=== PATIENT | male | born 1940 | race Caucasian/White ===

== ENCOUNTER 2017-03-22 08:41 | Day surgery (SDC) | payer MEDICARE, MEDICAID ==
[2017-03-22] MEDS ORDERED: Propofol 10 mg/ml Inj (20 ML) ONE (11:37)
[2017-03-22] MEDS ORDERED: Lidocaine 1% Inj (20ml) ONE (11:38)
[2017-03-22] MEDS ORDERED: Etomidate 20 mg/10ml Inj IV ONE (11:40)
[2017-03-22] MEDS: Bupivacaine 0.5% Inj(30mL) ONE ×2 (12:45→13:02)
[2017-03-22] MEDS ORDERED: HYDROmorphone 0.5 mg/0.5 ml ISec IVP PRN (13:21)
[2017-03-22] MEDS ORDERED: Oxycodone/Acetaminophen 5/325 mg Tab PO PRN (13:26)
[2017-03-22] MEDS ORDERED: Sodium Chloride 0.9% 1,000 ML IV SCH (13:30)
--- NOTE | 2017-03-22 13:31 | PCM.SURG1 ---
Surgeon's Initial Post Op Note - Surgeon's Notes Surgeon: Dr. Ramos Machine Operator Hay Stacker: Dr. Mahoney PGY-2, Dr. Goff PGY-2 Type of Anesthesia: General Endo Pre-Operative Diagnosis: direct inguinal hernia Operative Findings: direct inguinal hernia Post-Operative Diagnosis: same Operation Performed: direct inguinal hernia repair with mesh placement Specimen/Specimens Removed: none Estimated Blood Loss: EBL {In ML}: 25 Blood Products Given: N/A Drains Used: No Drains Date of Surgery/Procedure: 03/22/17 Time of Surgery/Procedure: 13:31
[2017-03-22 15:27] VITALS: PULSE 64; RESP 19; TEMP 97.8
[2017-03-22 16:03] VITALS: BP 127/67; O2SAT 97
--- NOTE | 2017-03-22 23:39 | OP ---
PROCEDURE DATE: 03/22/2017 PREOPERATIVE DIAGNOSIS: Right inguinal hernia. POSTOPERATIVE DIAGNOSIS: Right inguinal hernia. OPERATION PERFORMED: Right inguinal herniorrhaphy with plug and patch. SURGEON: Dr. Ramos. ASSISTANTS: Dr. Osmel Goff and Dr. Warren. ESTIMATED BLOOD LOSS: Minimum. DESCRIPTION OF PROCEDURE: In the operating room, the patient was identified by name, name of procedure, laterality, my cameron, the consent, his name, number, and birthday. The area was prepped and draped with perioperative antibiotics. He was on Flomax for nocturia. The area was mapped out and a small incision was made through the skin and subcutaneous tissues that was dissected down through the fascia through the Soy's to identify the fatty layer above the external oblique which was then bluntly to expose the external oblique. Immediately obvious when the retractor was placed was a large hernia going in towards the right along side of the cord. The external oblique was divided under direct vision with fibers and the undersurface of the external oblique was cleaned very nicely. The hernia sac was circumscribed at the pubic tubercle, the pen was placed around identifying that we had included the vas. The hernia sac was then quickly from the cord and the cord with the [place] tied laterally. The hernia sac was then dissected towards opening, it was clearly a direct hernia. A lavonne was made in the hernia sac and this clearly entered the peritoneum and this was closed with Vicryl. Going at the origin of the direct sac, a circumferential incision was made through the fascia. The fascia was then circumferentially identified and from the preperitoneal or properitoneal fat. This was done widely, probably 2 cm in all directions. This allowed the high dissection of the sac to be prolapsed through it, so doing left nice space with a large plug which was sutured circumferentially, this was done to the inner pedals of the plug. The fascia was then closed with a Prolene to give a final beautiful closure. The patch was then placed on top making a hays hole bigger where the cord itself was somewhat large. It was sutured in place and tamped to neutral position. Several tacking stitches were placed without incident. This having been done, the external oblique was placed in its normal position, closed with Vicryl. The testicle was put in its normal position, the wound was injected with Marcaine. The Soy's closed with Vicryl as was the subcutaneous tissue and incision was closed with running PDS and Dermabond. The patient was taken to recovery in good condition after the sponge and needle counts were declared correct. Titi Ramos MD
== END 2017-03-22 20:10 | disposition home or self-care (01) ==
LOC: SDS 08:41
PROVIDERS: ATTEND Surgery
DX: K40.90 Unilateral inguinal hernia, without obstruction or gangrene, not specified as recurrent (principal); I25.10 Atherosclerotic heart disease of native coronary artery without angina pectoris; E78.5 Hyperlipidemia, unspecified
CPT/HCPCS: 49505; C1781; J0690; J1170; J1885; J2405; J2704; J3010; J7030; J7040; J7120

== ENCOUNTER 2018-11-25 10:04 | Outpatient (CLI) | payer MEDICARE, MEDICAID | END 2018-11-25 10:05 | disposition home or self-care (01) | LOC: RAD 10:04 ==